=== PATIENT | female | born 1990 | race Caucasian/White ===

== ENCOUNTER 2016-11-29 05:21 | Emergency (ER) | payer OTHER ==
[2016-11-29 10:23] LABS: RED BLOOD COUNT 4.24 M/UL (4.00-5.10); WHITE BLOOD COUNT 10.9 K/UL (4.5-11.0)
[2016-11-29 10:58] LABS: BUN/CREATININE RATIO 17 (0-10)
== END 2016-11-29 13:20 | disposition home or self-care (01) ==
LOC: ER1 05:21
PROVIDERS: Emergency Medicine
DX: K80.50 Calculus of bile duct without cholangitis or cholecystitis without obstruction (principal); Z88.8 Allergy status to other drugs, medicaments and biological substances
CPT/HCPCS: 36415; 76705; 80053; 81001; 83690; 84703; 85025; 87086; 99284

== ENCOUNTER 2020-09-01 14:02 | Emergency (ER) | payer OTHER ==
[~2020-09-01 14:02] MED LIST: IBUPROFEN600 MG PO; NORCO 5-325 TA1 EACH PO; PRENATAL VITAM1 EAC3 PO
[2020-09-01 15:51] LABS: RED BLOOD COUNT 4.19 M/UL (4.00-5.10); WHITE BLOOD COUNT 9.5 K/UL (4.5-11.0)
[2020-09-01 16:15] LABS: BUN/CREATININE RATIO 14 (0-10)
[2020-09-01] MEDS ORDERED: ZOFRAN4 MG PO (17:33)
[2020-09-01] MEDS ORDERED: IBUPROFEN800 MG PO (17:33)
== END 2020-09-01 18:24 | disposition home or self-care (01) ==
LOC: ER1 14:02
PROVIDERS: Preventive Medicine Occupational Medicine
DX: R10.31 Right lower quadrant pain (principal); U07.1 COVID-19; Z88.8 Allergy status to other drugs, medicaments and biological substances
CPT/HCPCS: 80053; 83690; 85025; 96374; 96375; 99284; J1885; J2405; Q9967

== ENCOUNTER → 2021-11-07 | Day surgery (SDC) | payer OTHER ==
[~2021-11-07] MED LIST changes: +COLACE 100MG C100 MG PO; +DOCUSATE SODIU100 MG PO; +HYDROCODON-ACE1 EAC4 PO; +IBUPROFEN800 MG PO; +ZOFRAN4 MG PO
[2021-11-07 07:21] LABS: WHITE BLOOD COUNT 7.2 K/UL (4.5-11.0)
[2021-11-07 07:22] LABS: HEMOGLOBIN 12.1 gm/dl (12.3-15.3)
== END | disposition home or self-care (01) ==
LOC: OR 05:56
PROVIDERS: Obstetrics & Gynecology
DX: O03.4 Incomplete spontaneous abortion without complication (principal); Z88.8 Allergy status to other drugs, medicaments and biological substances; Z20.822 Contact with and (suspected) exposure to COVID-19
CPT/HCPCS: 81001; 85025; J1100; J1885; J2001; J2250; J2405; J2704; J2795; J3010; J7120; U0002